=== PATIENT | female | born 1970 ===

== ENCOUNTER 2020-04-07 13:12 | Emergency (ER) ==
--- NOTE | 2020-04-08 09:07 | EKG REPORT ---
SEVERITY:- ABNORMAL ECG - SINUS RHYTHM ABNRM R PROG, CONSIDER ASMI OR LEAD PLACEMENT BORDERLINE T ABNORMALITIES, INFERIOR LEADS : Confirmed by: Pradip Lassiter MD 08-Apr-2020 09:07:01
== END 2020-04-07 18:19 | disposition left against medical advice (07) ==
LOC: ER 13:12
DX: Z53.21 Procedure and treatment not carried out due to patient leaving prior to being seen by health care provider (principal); R07.9 Chest pain, unspecified